=== PATIENT | male | born 1970 | race Caucasian/White ===

== ENCOUNTER 2018-07-10 13:49 | Emergency (ER) | END 2018-07-10 19:26 | disposition home or self-care (01) ==

== ENCOUNTER 2018-07-14 19:28 | Inpatient (IN) | END 2018-07-23 17:10 | DRG 641 ==

== ENCOUNTER 2018-07-23 17:32 | Inpatient (IN) | END 2018-08-02 13:15 | disposition home health service (06) | DRG 92 ==